=== PATIENT | female | born 2005 | race Caucasian/White ===

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

== ENCOUNTER 2025-08-21 18:36 | Emergency (ER) | payer SELFPAY ==
--- NOTE | ~2025-08-21 | US_ITS ---
US pelvic complete INDICATION: significant vaginal bleeding . COMPARISON: None. TECHNIQUE: Transabdominal and transvaginal ultrasound of the pelvis was performed. FINDINGS: The uterus measures 11.3 x 4.8 x 6.8 cm. It demonstrates normal echotexture and contour. The endometrial stripe measures endometrium is thickened measuring 3 cm. The right ovary measures 7.2 x 3.6 x 6.1 cm. The left ovary measures 10.9 x 7.5 x 8.4 cm. No free fluid is seen. Visualized portions of the bladder are normal. Epps scale, color Doppler, and spectral waveform analysis of the ovaries was performed. There is symmetric arterial and venous flow bilaterally. Impression: Complex septated left ovarian cyst. Reviewed, dictated and finalized at location S. Impression: Complex septated left ovarian cyst.
[2025-08-21 18:47] VITALS: BP 142/102; PULSE 117; RESP 17; TEMP 37; O2SAT 97
--- OUTSIDE RECORDS SUMMARY | 2025-08-21 20:02 | XMS_ITS | Clinical Summary ---
Author Organization [facility] Address [address] [place] [address] Care Team Providers Care Home Based Assistant Name Role Phone Sheldon Ontiveros MD Primary Care Provider [phone] Sheldon Ontiveros MD Unavailable [phone] Source Comments [facility],non-owned Affiliates and Associated Physician Practices is amultiple site organization consisting of ambulatory clinics and hospital sitesin [place], [place] and [place]. This disclosure is being madepursuant to the Care Everywhere program and may not contain all information available regarding this patient. Last updated 18.[facility] Allergies No known active allergies Medications * This document contains information received from the source organization and may not represent a complete record from that organization. * Be aware that medications may not be up to date on this document. Alwaysverify current medications with the patient. Slynd 4 MG TABS tablet TAKE 1 TABLET BY MOUTH DAILY FOR 24 DAYS 05/22/2022 Active Active Problems Problem Noted Date Diagnosed Date PCOS (polycystic ovarian syndrome) 01/28/2018 Assessment & Plan (08/31/2022 9:01 PM CDT): Assessment: Megan has a confirmed history of PCOS, which is known to often respond favorably to OCPs. Plan: - Her father was concerned about the slight increased risk of ovarian cancer estrogen containing pills can bring given her already higher than normal risk. - Megan has requested time to consider if she will start such medications. - Megan should return as scheduled on 11/30 for further evaluation and treatment. Alopecia 11/16/2017 Assessment & Plan (08/31/2022 8:58 PM CDT): Assessment: Alopecia almost certainly 2/2 PCOS Plan: Effective treatment of PCOS should greatly improve alopecia. Immunizations Immunization Administration Dates Next Due DTAP/HEP B/IPV 03/31/2005,01/27/2005,2004 DTAP/IPV 05/02/2010 FLU VACCINE TRI IIV3 SPLIT IM (FLUVIRIN) 014 HEP A PEDS 2 DOSE 05/02/2010,09/07/2008 HIB VACCINE 03/31/2005,01/27/2005,2004 Human Papilloma Virus Ninevalent Vaccine 022,09/19/2021 INFLUENZA VACCINE 08/12/2009,09/07/2008,10/21/20 05 MMR VACCINE 05/02/2010,10/21/2005 Meningococcal ACWY (Menquadfi) Vac IM 08/17/2022 PNEUMOCOCCAL PCV7 CONJ, PEDS 03/31/2005,01/28/20 05,2004 TDAP, HISTORIC VACCINE 08/17/2022 VARICELLA 05/02/2010,10/21/2005 Social History Tobacco Use Types Packs/Day Years Used Date Smoking Tobacco: Never Assessed Tobacco Cessation:Counseling Given: Not Answered Comments No Sex and Gender Information Value Date Recorded Sex Assigned at Not on file Legal Sex Female 10:01 AM CDT Gender Identity Not on file Sexual Orientation Not on file Last Filed Vital Signs Vital Sign Reading Time Taken Comments Blood Pressure 120/82 08/31/2022 10:15 AM CDT Pulse 80 07/10/2013 12:30 PM CDT Temperature 35.6 C (96 F) 07/10/2013 10:11 AM CDT Respiratory Rate 20 07/10/2013 12:3 0 PM CDT Oxygen Saturation 98% 07/10/2013 11: 15 AM CDT Inhaled Oxygen Concentration - - Weight 100.7 kg (222 lb 0.1 oz) 022 10:15 AM CDT Height 164.2 cm (5' 4.65) 08/31/2022 1 0:15 AM CDT Body Mass Index 37.35 08/31/2022 10:15 AM CDT Plan of Treatment Health Maintenance Due Date Last Done Comments HIV SCREENING 2019 CHLAMYDIA/GONORRHEA SCREENING 2020 MENINGOCOCCAL (Group B) VACCINE SHARED DECISION-MAKING (1 of 2 - Standard) 2020 HEPATITIS C SCREENING 09/01/2022 HPV VACCINE (3 - 3-dose series) 11/09/2022 08/17/2022, 09/19/2021 DEPRESSION SCREENING 11/01/2024 COVID-19 VACCINE ( season) 2025 INFLUENZA VACCINE (#1) 2025 4, 08/12/2009, 09/07/2008, Additional history exists DTAP/TDAP/TD VACCINES (6 - Td or Tdap) 08/17/2032 08/17/2022, 05/02/2010, 03/31/2005, Additional history exists ZOSTER VACCINE (1 of 2) 2054 HEPATITIS B VACCINE Completed 03/31/2005, 01/27/2005, 2004 HIB VACCINE Aged Out 03/31/2005, 12/31, 2004 No longer eligible based on patient's age to complete this topic PNEUMOCOCCAL VACCINE Aged Out 03/31/2005, 01/27/2005, 2004 No longer eligible based on patient's age to complete this topic MENINGOCOCCAL GROUPS A/C/Y/W VACCINE Completed 08/17/2022 Insurance [facility] MEDICA[facility] - [place] [facility] [place] [address] Care Teams Home Based Assistant Relationship Specialty Start Date End Date Sheldon Ontiveros MD [address] [phone] [facility] - General 09/14/22 Sheldon Ontiveros MD [address] [place] [phone] 07/31/22
[2025-08-21 21:05] VITALS: BP 128/89; PULSE 103; RESP 20; O2SAT 98
[2025-08-21 21:08] LABS: BEDSIDEPREGUCG Negative (Negative)
--- NOTE | 2025-08-21 21:13 | ED_ITS ---
HPI - Female Genitourinary General Chief complaint: Abdominal Pain <Aury Hernandez APRN - Last Filed: 08/22/25 02:18> Stated complaint: abd. pain <Aury Hernandez APRN - Last Filed: 08/22/25 02:18> Time Seen by Provider: 08/21/25 20:36 <Aury Hernandez APRN - Last Filed: 08/22/25 02:18> History of Present Illness HPI Narrative: Patient is a 19-year-old female who presents to the ER with vaginal bleeding. She reports she has concerns that one of my cysts popped. Patient reports she has a significant history of PCOS. She denies any other medical history relevant to this ER visit. Patient denies any urinary symptoms, recent fevers, or back pain. She reports her last menstrual period was at the end of last month. Patient reports her last ultrasound was probably 2 years ago. She endorses passing large clots. <Aury Hernandez APRN - Last Filed: 08/22/25 02:18> Related Data Allergies/Adverse reactions: Allergies Allergy/AdvReac Type Severity Reaction Status Date / Time No Known Allergies Allergy Verified 08/21/25 18:50 <Aury Hernandez APRN - Last Filed: 08/22/25 02:18> Review of Systems 2 Review of Systems: All systems reviewed & are unremarkable except as noted in HPI and below <Aury Hernandez APRN - Last Filed: 08/22/25 02:18> [facility] Past Medical History Medical History: Medical History PCOS (polycystic ovarian syndrome) Anxiety <Aury Hernandez APRN - Last Filed: 08/22/25 02:18> Surgical History Surgical History: Surgical History History of ovarian cystectomy History of laparoscopy No pertinent past surgical history <Aury Hernandez APRN - Last Filed: 08/22/25 02:18> Family History Family History: Family History Father Diabetes mellitus Depression Anxiety Heart disease Other Hypertension <Aury Hernandez APRN - Last Filed: 08/22/25 02:18> Social History Social History: Social History Smoking status: Never smoker Alcohol intake: never Substance use: never Living arrangements: with family Occupation/Education: student Gender identity (if verbalized by the patient): Female Spiritual care concerns: No <Aury Hernandez APRN - Last Filed: 08/22/25 02:18> Exam 2 Narrative: GENERAL: Well appearing, obese, non-toxic, in no acute distress. HEAD: Normocephalic, atraumatic. NECK: Supple. No adenopathy, no masses. RESPIRATORY: Airway patent, respirations nonlabored. Clear to auscultation bilaterally, no rales, rhonchi, wheezing. CARDIOVASCULAR: Regular rate and rhythm without murmurs, rubs, or gallops. Peripheral pulses 2+ and equal bilaterally. ABDOMINAL: Soft, nontender, nondistended, no hepatosplenomegaly. Normoactive BS. MUSCULOSKELETAL: Moves all extremities. Strength/ROM intact without gross deformities. SKIN: Warm, dry, normal color. No rashes. NEURO: A&O X3. Speech clear. Cranial nerves II-XII intact. No ataxic movements. PSYCHIATRIC: Appropriate mood and affect. Normal interaction. GI/: Vaginal exam shows moderate amount of dark red blood in pt's vaginal canal, minimal pooling, no visible clots. <Aury Hernandez APRN - Last Filed: 08/22/25 02:18> Course [employer]/PA Physician Supervision This visit was performed by both a physician and an APC. I performed all aspects of the MDM as documented. <David Cruz MD - Last Filed: 08/25/25 01:06> Vital Signs Vital signs: Vital Signs Temperature 98.6 F 08/21/25 18:47 Pulse Rate 117 H 08/21/25 18:47 Respiratory Rate 17 08/21/25 18:47 Blood Pressure 142/102 H 08/21/25 18:47 Pulse Oximetry 97 08/21/25 18:47 Oxygen Delivery Room Air 08/21/25 18:47 Temperature 98.6 F 10/21/25 18:47 Pulse Rate 93 08/22/25 02:46 Respiratory Rate 20 08/22/25 02:46 Blood Pressure 130/88 08/22/25 02:46 Pulse Oximetry 97 08/22/25 02:46 Oxygen Delivery Room Air 08/21/25 18:47 <Aury Hernandez APRN - Last Filed: 08/22/25 02:18> Vital Signs Temperature 98.6 F 08/21/25 18:47 Pulse Rate 117 H 08/21/25 18:47 Respiratory Rate 17 08/21/25 18:47 Blood Pressure 142/102 H 08/21/25 18:47 Pulse Oximetry 97 08/21/25 18:47 Oxygen Delivery Room Air 08/21/25 18:47 Temperature 98.6 F 08/21/25 18:47 Pulse Rate 93 08/22/25 02:46 Respiratory Rate 20 08/22/25 02:46 Blood Pressure 130/88 08/22/25 02:46 Pulse Oximetry 97 08/22/25 02:46 Oxygen Delivery Room Air 08/21/25 18:47 <David Cruz MD - Last Filed: 08/25/25 01:06> MDM - Female Genitourinary MDM Narrative Medical decision making narrative: Patient is a 19-year-old female who presents to the ER with vaginal bleeding. She reports she has concerns that one of my cysts popped. Patient reports she has a significant history of PCOS. She denies any other medical history relevant to this ER visit. Patient denies any urinary symptoms, recent fevers, or back pain. She reports her last menstrual period was at the end of last month. Patient reports her last ultrasound was probably 2 years ago. She endorses passing large clots. Labs Ordered: CBC, CMP, type and screen, UA, lipase Imaging Ordered: Pelvic vaginal ultrasound Medications Ordered: 1 L normal saline IV bolus x 2, Toradol 15 mg IV Results: Patient's CBC indicates white blood cell count of 9.8, RBC of 5.29, hemoglobin of 13.6, hematocrit of 41.8%. Her CMP indicates a sodium of 133, creatinine of 0.5, glucose of 249, calcium 11.3, AST of 63, ALT of 93. Patient's urinalysis indicates hematuria. Patient's ultrasound indicates C omplex septated left ovarian cyst. Patient's repeat hemoglobin and hematocrit indicate a hemoglobin of 12.2 and hematocrit of 38.0%. Diagnosis: Complex left ovarian cyst Patient Education/Shared MDM: Results of lab work and imaging shared with patient. She endorses improvement of symptoms following Toradol medication administration. Patient strongly advised to maintain hydration status upon discharge and follow-up with an OBGYN as soon as possible. She will not be discharged home with any new prescriptions, but advised to take Ibuprofen 800mg every eight hours. Strict return precautions provided. Patient verbalized understanding and is in agreement with plan. Vital signs stable at time of discharge. All questions answered. <Aury Hernandez, EVENT COORDINATOR [employer] - Last Filed: 08/22/25 02:18> Patient is a 19-year-old female who presents to the ER with vaginal bleeding. She reports she has concerns that one of my cysts popped. Patient reports she has a significant history of PCOS. She denies any other medical history relevant to this ER visit. Patient denies any urinary symptoms, recent fevers, or back pain. She reports her last menstrual period was at the end of last month. Patient reports her last ultrasound was probably 2 years ago. She endorses passing large clots. Labs Ordered: CBC, CMP, type and screen, UA, lipase Imaging Ordered: Pelvic vaginal ultrasound Medications Ordered: 1 L normal saline IV bolus x 2, Toradol 15 mg IV Results: Patient's CBC indicates white blood cell count of 9.8, RBC of 5.29, hemoglobin of 13.6, hematocrit of 41.8%. Her CMP indicates a sodium of 133, creatinine of 0.5, glucose of 249, calcium 11.3, AST of 63, ALT of 93. Patient's urinalysis indicates hematuria. Patient's ultrasound indicates C omplex septated left ovarian cyst. Patient's repeat hemoglobin and hematocrit indicate a hemoglobin of 12.2 and hematocrit of 38.0%. Diagnosis: Complex left ovarian cyst Patient Education/Shared MDM: Results of lab work and imaging shared with patient. She endorses improvement of symptoms following Toradol medication administration. Patient strongly advised to maintain hydration status upon discharge and follow-up with an OBGYN as soon as possible. She will not be discharged home with any new prescriptions, but advised to take Ibuprofen 800mg every eight hours. Strict return precautions provided. Patient verbalized understanding and is in agreement with plan. Vital signs stable at time of discharge. All questions answered. This visit was performed by both a physician and an APC. I performed all aspects of the MDM as documented. <David Cruz MD - Last Filed: 08/25/25 01:06> Differential Diagnosis Differential diagnosis: Likely urinary tract infection, ruptured ovarian cyst, cystitis and dysmenorrhea <Aury Hernandez APRN - Last Filed: 08/22/25 02:18> Lab Data Attestation: I reviewed the patient's lab results. <Aury Hernandez APRN - Last Filed: 08/22/25 02:18> Result diagrams: 08/22/25 01:47 08/21/25 21:03 <Aury Hernandez APRN - Last Filed: 08/22/25 02:18> Labs: Lab Results 08/21/25 08/21/25 08/22/25 Range/Units 21:03 21:05 01:47 WBC 9.8 (4.5-10.0) K/mm3 RBC 5.29 (4.2-5.4) M/mm3 Hgb 13.6 D 12.2 (12.0-15.0) g/dL Hct 41.8 38.0 (37.0-47.0) % MCV 79.0 L (80-100) fl MCH 25.7 L (26-34) pg MCHC 32.5 (32-36) g/dl RDW 13.9 (11.5-14.5) % Plt Count 518 H (150-375) k/mm3 MPV 8.8 (7.4-10.4) fl Immature Gran % (Auto) 0.2 (0-0.5) % Neut % (Auto) 45.0 L (45.5-73.1) % Lymph % (Auto) 47.7 H (18.3-44.2) % [place] % (Auto) 4.8 (2.6-8.5) % Eos % (Auto) 1.8 (0-4.4) % Baso % (Auto) 0.5 (0.2-1.2) % Lymph # (Auto) 4.69 H (0.9-3.2) K/mm3 [place] # (Auto) 0.5 (0.1-0.6) K/mm3 Eos # (Auto) 0.2 (0-0.3) K/mm3 Baso # (Auto) 0.1 (0.0-0.1) K/mm3 Abs Immat Gran (auto) 0.02 (0.00-0.031) K/mm3 Absolute Neuts (auto) 4.4 (1.3-6.7) K/mm3 Absolute Nucleated RBC 0.000 (0.0-0.012) K/mm3 Nucleated RBC % 0.0 (0.0-0.2) % Sodium 133 L (137-145) mmol/L Potassium 4.2 (3.4-5.0) mmol/L Chloride 100 (98-107) mmol/L Carbon Dioxide 23 (22-30) mmol/L Anion Gap 10 (4-12) mmol/L BUN 11 (7-17) mg/dL Creatinine 0.50 L (0.7-1.0) mg/dL Estim Creat Clear Calc Not Reportable Estimated GFR > 60 (59 - ) Glucose 249 H (65-110) mg/dL Calcium 11.3 H (8.4-10.2) mg/dL Total Bilirubin 0.3 (0.2-1.3) mg/dL AST 63 H (14-36) U/L ALT 93 H (6-35) U/L Alkaline Phosphatase 84 (38-126) U/L Total Protein 7.8 (6.3-8.2) g/dL Albumin 4.4 (3.5-5.1) g/dL Lipase 100 (23-300) U/L Urine Color Light red H (Yellow) Urine Appearance Cloudy H (Clear) Urine pH 6.0 (5.0-9.0) Ur Specific [place] 1.016 (1.001-1.035) Urine Protein Negative (Negative) mg/dL Urine Glucose (UA) 3+ H (Negative) mg/dL Urine Ketones Negative (Negative) mg/dL Ur Blood (Man) 3+ H (Negative) Urine Nitrate Negative (Negative) Urine Bilirubin Negative (Negative) Urine Urobilinogen 1.0 (<2.0) mg/dL Leukocyte Esterase Rfl Trace H (Negative) TRINI/UL Urine RBC >100 H (0-2) /hpf Urine WBC 0-5 (0-3) /hpf Ur Squamous Epith Cells None seen (Few) /hpf Urine Bacteria None seen /hpf Urine Casts 0-2 POC Urine HCG, Qual Negative (Negative) <Aury Hernandez APRN - Last Filed: 08/22/25 02:18> Lab Results 08/21/25 08/21/25 08/22/25 Range/Units 21:03 21:05 01:47 WBC 9.8 (4.5-10.0) K/mm3 RBC 5.29 (4.2-5.4) M/mm3 Hgb 13.6 D 12.2 (12.0-15.0) g/dL Hct 41.8 38.0 (37.0-47.0) % MCV 79.0 L (80-100) fl MCH 25.7 L (26-34) pg MCHC 32.5 (32-36) g/dl RDW 13.9 (11.5-14.5) % Plt Count 518 H (150-375) k/mm3 MPV 8.8 (7.4-10.4) fl Immature Gran % (Auto) 0.2 (0-0.5) % Neut % (Auto) 45.0 L (45.5-73.1) % Lymph % (Auto) 47.7 H (18.3-44.2) % [place] % (Auto) 4.8 (2.6-8.5) % Eos % (Auto) 1.8 (0-4.4) % Baso % (Auto) 0.5 (0.2-1.2) % Lymph # (Auto) 4.69 H (0.9-3.2) K/mm3 [place] # (Auto) 0.5 (0.1-0.6) K/mm3 Eos # (Auto) 0.2 (0-0.3) K/mm3 Baso # (Auto) 0.1 (0.0-0.1) K/mm3 Abs Immat Gran (auto) 0.02 (0.00-0.031) K/mm3 Absolute Neuts (auto) 4.4 (1.3-6.7) K/mm3 Absolute Nucleated RBC 0.000 (0.0-0.012) K/mm3 Nucleated RBC % 0.0 (0.0-0.2) % Sodium 133 L (137-145) mmol/L Potassium 4.2 (3.4-5.0) mmol/L Chloride 100 (98-107) mmol/L Carbon Dioxide 23 (22-30) mmol/L Anion Gap 10 (4-12) mmol/L BUN 11 (7-17) mg/dL Creatinine 0.50 L (0.7-1.0) mg/dL Estim Creat Clear Calc Not Reportable Estimated GFR > 60 (59 - ) Glucose 249 H (65-110) mg/dL Calcium 11.3 H (8.4-10.2) mg/dL Total Bilirubin 0.3 (0.2-1.3) mg/dL AST 63 H (14-36) U/L ALT 93 H (6-35) U/L Alkaline Phosphatase 84 (38-126) U/L Total Protein 7.8 (6.3-8.2) g/dL Albumin 4.4 (3.5-5.1) g/dL Lipase 100 (23-300) U/L Urine Color Light red H (Yellow) Urine Appearance Cloudy H (Clear) Urine pH 6.0 (5.0-9.0) Ur Specific [place] 1.016 (1.001-1.035) Urine Protein Negative (Negative) mg/dL Urine Glucose (UA) 3+ H (Negative) mg/dL Urine Ketones Negative (Negative) mg/dL Ur Blood (Man) 3+ H (Negative) Urine Nitrate Negative (Negative) Urine Bilirubin Negative (Negative) Urine Urobilinogen 1.0 (<2.0) mg/dL Leukocyte Esterase Rfl Trace H (Negative) TRINI/UL Urine RBC >100 H (0-2) /hpf Urine WBC 0-5 (0-3) /hpf Ur Squamous Epith Cells None seen (Few) /hpf Urine Bacteria None seen /hpf Urine Casts 0-2 POC Urine HCG, Qual Negative (Negative) <David Cruz MD - Last Filed: 08/25/25 01:06> Imaging Data Attestation: I personally reviewed and interpreted this imaging study as follows: < Aury Hernandez APRN - Last Filed: 08/22/25 02:18> Radiologist's impression: Impressions Pelvis Ultrasound 08/21/25 22:19 Impression: Complex septated left ovarian cyst. <Aury Hernandez APRN - Last Filed: 08/22/25 02:18> Discharge Plan Discharge Clinical Impression: Menometrorrhagia, Ovarian cyst, left, PCOS (polycystic ovarian syndrome) <Aury Hernandez APRN - Last Filed: 08/22/25 02:18> Patient Disposition: Home <Aury Hernandez APRN - Last Filed: 08/22/25 02:18> Condition: Stable <Aury Hernandez APRN - Last Filed: 08/22/25 02:18> Instructions: Antibiotic Form <Aury Hernandez APRN - Last Filed: 08/22/25 02:18> Additional Instructions: Please return to the ER with any worsening symptoms. Follow-up with an OBGYN as soon as possible for further evaluation and treatment of your ovarian cysts. Please take 800 mg ibuprofen every 8 hours to see if this helps decrease your vaginal bleeding. Your hemoglobin and hematocrit levels are stable, which is reassuring. <Aury Hernandez APRN - Last Filed: 08/22/25 02:18> Patient Language: [place] Irish <Aury Hernandez APRN - Last Filed: 08/22/25 02:18> Prescriptions: No Action Slynd 4 mg (28) tablet See Rx Instructions .ROUTE .COMPLEX Qty: 84 0RF Dose Instruction: TAKE 1 TABLET BY MOUTH DAILY FOR 24 DAYS Rx Instructions: TAKE 1 TABLET BY MOUTH DAILY FOR 24 DAYS <Aury Hernandez APRN - Last Filed: 08/22/25 02:18> Follow-up/Referrals: Vasu Hernandez MD [Physician, YARD PIPE GRADER] Referral Note: Courtney Meadows MD [Physician, YARD PIPE GRADER] Referral Note: Azael Brown MD [Physician, YARD PIPE GRADER] Referral Note: Ozzie Magaña MD [Primary Care Provider, Family Practice] <Aury Hernandez APRN - Last Filed: 08/22/25 02:18> Time of Disposition: 02:17 <Aury Hernandez APRN - Last Filed: 08/22/25 02:18> 02:17 <David Cruz MD - Last Filed: 08/25/25 01:06>
[2025-08-21 21:17] LABS: Hematocrit 41.8 % (37.0-47.0); Hemoglobin 13.6 g/dL (12.0-15.0); Immature Granulocyte Percent A 0.2 % (0-0.5); Lymphocytes Absolute Auto 4.69 K/mm3 (0.9-3.2); Mean Corpuscular HGB Conc 32.5 g/dl (32-36); Mean Corpuscular Hemoglobin 25.7 pg (26-34); Mean Corpuscular Volume 79.0 fl (80-100); Nucleated Red Blood Cells Absolute Auto 0.000 K/mm3 (0.0-0.012); Nucleated Red Blood Cells Perc 0.0 % (0.0-0.2); Platelet Count Result 518 k/mm3 (150-375); Red Blood Count 5.29 M/mm3 (4.2-5.4); White Blood Count 9.8 K/mm3 (4.5-10.0)
[2025-08-21 21:19] LABS: Non Pathogenic Casts 0-2
[2025-08-21 21:20] LABS: Add Urine Microscopic? YES; Appearance Urine Cloudy (Clear); Glucose Urine UA 3+ mg/dL (Negative); Leukocyte Esterase Ur Trace LEU/UL (Negative); Nitrate Urine Negative (Negative); Specific Grav Ur 1.016 (1.001-1.035)
[2025-08-21 21:25] LABS: Alanine Aminotransferase 93 U/L (6-35); Albumin Level 4.4 g/dL (3.5-5.1); Alkaline Phosphatase 84 U/L (38-126); Anion Gap 10 mmol/L (4-12); Aspartate Amino Transferase 63 U/L (14-36); Bilirubin,Total 0.3 mg/dL (0.2-1.3); Blood Urea Nitrogen 11 mg/dL (7-17); Calcium 11.3 mg/dL (8.4-10.2); Carbon Dioxide 23 mmol/L (22-30); Chloride 100 mmol/L (98-107); Estimated Glomerular Filt Rate > 60; Glucose 249 mg/dL (65-110); Lipase 100 U/L (23-300); Potassium 4.2 mmol/L (3.4-5.0); Sodium 133 mmol/L (137-145); Total Protein 7.8 g/dL (6.3-8.2)
[2025-08-21] MEDS: SODIUM CHLORIDE 0.9% IV 1,000 ML 999 ML IV CONT ×2 (21:34→23:35)
[2025-08-21 21:51] VITALS: BP 139/97; PULSE 104; RESP 23; O2SAT 98
[2025-08-21 22:44] VITALS: BP 141/95; PULSE 109; RESP 17; O2SAT 97
[2025-08-21] MEDS: KETOROLAC 15 MG/ML VIAL (*BKC) IV PUSH (23:35)
[2025-08-21 23:39] VITALS: BP 152/94; PULSE 97; RESP 20; O2SAT 97
[2025-08-22 01:45] VITALS: BP 130/88; PULSE 96; RESP 17; O2SAT 98
[2025-08-22 01:52] LABS: Hematocrit 38.0 % (37.0-47.0); Hemoglobin 12.2 g/dL (12.0-15.0)
[2025-08-22 02:46] VITALS: BP 130/88; PULSE 93; RESP 20; O2SAT 97
== END 2025-08-22 02:49 | disposition home or self-care (01) ==
PROVIDERS: Emergency Medicine; Emergency Provider Registered Nurse; PCP Family Medicine
DX: N92.1 Excessive and frequent menstruation with irregular cycle (principal); E28.2 Polycystic ovarian syndrome
CPT/HCPCS: 36415; 76856; 80053; 81001; 81025; 83690; 85014; 85018; 85025; 96361; 96374; 99284; J1885; J7030